=== PATIENT | female | born 1965 | race Caucasian/White ===

== ENCOUNTER 2019-07-04 16:55 | Observation (INO) ==
[2019-07-04] MEDS ORDERED: SODIUM CHLORIDE 0.9% 1000ML 1,000 ML IV SCH (17:30)
[2019-07-04 17:37] LABS: Appearance Urine Clear (Clear); Bilirubin Urine Negative (Negative); Blood Urine Negative (Negative); Color Urine Yellow; Glucose Urine UA Negative (Negative); Ketones Urine Negative (Negative); Leukocyte Esterase Urine Negative (Negative); Nitrite Urine Negative (Negative); Protein Urine Negative (Negative); Specific Gravity Urine 1.005 (1.000-1.030); Urobilinogen Urine Negative (Negative); pH Urine 6.5 (4.5-7.5)
--- NOTE | 2019-07-04 17:39 | Emergency Department Note ---
Impression & Plan Abdominal pain, RLQ (right lower quadrant) ED Provider Note Provider: Venkatesh Abdul MD DATE OF SERVICE: 07/04/2019 CHIEF COMPLAINT: Referred by , abdominal pain HISTORY OF PRESENT ILLNESS: Patient is a 54-year-old female with a history of breast cancer, hyperlipidemia, allergies presenting today with the referral for further evaluation of abdominal pain. Patient evidently was suffering for abdominal pain anomaly in the right lower quadrant and had an outpatient CT done 2 days ago. Noted a large appendix at that time but without inflammatory changes. Surgeon reviewed the images today and referred her here for further evaluation. Patient currently denies any pain or nausea. Afebrile upon arrival. Patient states her symptoms improved today and other than having some loose stools she has been eating okay. No significant right lower quadrant pain. Patient states she been going up and down ladders and painting at home. No sick contacts. Patient states that she is not taken any significant pain relievers. Patient denies fever. REVIEW OF SYSTEMS: A total of 10 review of systems was obtained and negative except as stated above in the HPI. PAST MEDICAL HISTORY: As noted above, and includes prior hysterectomy MEDICATIONS: Reviewed nursing notes and includes arimidex SOCIAL HISTORY: Patient is non-smoker and lives at home with son PHYSICAL EXAM: GENERAL: alert and oriented in no acute distress on stretcher Head: normocephalic and atraumatic EYES: No injection, discharge or icterus ENT: Mucous membranes pink and moist. LUNGS: Airway patent. No retractions. Breath sounds clear with good air entry bilaterally. HEART: Regular rate and rhythm. No chest wall tenderness ABDOMEN: Soft nondistended without peritoneal signs or rebound. On deep palpation may be slight right lower quadrant tenderness elicited. BACK:. No bilateral flank tenderness. SKIN: Acyanotic, warm, dry, without rashes EXTREMITIES: Without swelling, tenderness or deformity NEUROLOGICAL: No focal deficits. No aphasia. No facial droop or slurred speech. Ambulatory. Patient's hypertension was referred to her PCP HOSPITAL COURSE: 1702 Patient was first seen and H&P performed. 1824 Patient reassessed and updated. Discussed the patient with Dr. Salvador of general surgery who stated he would evaluate and recommended CT. At approximately 7 PM and then again at approximately 7:30 PM discussed with the patient and general surgeon plan of care. Patient's laboratory studies and imaging reviewed. Differential includes Appendicitis, ovarian cyst, ovarian torsion, ectopic , TOA, PID, infections, diverticulitis, UTI, obstruction, mesenteric ischemia, aortic pathology, inflammatory bowel disease, renal colic, PUD, pancreatitis, biliary pathology, hernia, volvulus, constipation, as well as other pathologies. IMPRESSION/MEDICAL DECISION MAKING: Patient presents for evaluation given an enlarged appendix found on outpatient scan from 2 days ago. Patient symptomatologies have significantly improved. Patient does not appear peritoneal. No fevers reported. Given her well appearance started with blood work to look for any secondary signs of appendicitis is a leukocytosis or other abnormality. CT scan report and imaging reviewed showed enlarged appendix but no surrounding inflammatory changes from 2 days ago. Would expect worsening rather than improvement at this point or other significant abdominal exam findings if truly appendicitis. Urinalysis is without evidence of blood or infection. Electrolytes without significant abnormality. Renal function stable. No evidence of hepatitis or pancreatitis. Given the white blood cell count of 4.7 and her lack of symptoms at this point have a lower suspicion for acute appendicitis. Given that she was referred to us by general surgery I did discuss the case with Dr. Salvador. He evaluated in the department. She had some concern given the enlarged size this could represent a precancerous tumor. He did recommended that the patient have the appendix removed tonight to evaluate for this. He discussed the options with the patient. She also requested that I discussed the options with her as well. I discussed with her at length the risks and benefits and the options of waiting for further outpatient evaluation of this may be delayed in the setting of the current pandemic. Dr. Caceres also discussed with her risks and benefits. Patient was agreeable for laparoscopic appendectomy at this time and will be taken the OR for further care. DIAGNOSIS: Enlarged appendix DISPOSITION: Taken to the OR Past Med/Surg History Medical History (Updated 07/04/19 @ 22:39 by Venkatesh Abdul M.D.) Breast cancer Surgical History (Updated 07/04/19 @ 20:46 by Venkatesh Gutierrez DO) S/P mastectomy Social History (System 04/06/18 @ 11:36 by Zena Matthews) Preferred Language: Telugu Feels Safe at Home: Yes Smoking Status: Never smoker Allergies Allergies Allergy/AdvReac Type Severity Reaction Status Date / Time Sulfa (Sulfonamide Allergy Intermediate DELIRIUM Verified 07/04/19 17:36 Antibiotics) vancomycin AdvReac Mild BI'S Verified 07/04/19 17:36 SYNDROME Home Meds Home Medications Medication Instructions Recorded Confirmed anastrozole 1 mg PO DAILY 07/04/19 07/04/19 atorvastatin 80 mg PO DAILY 07/04/19 07/04/19 cetirizine [Zyrtec] 10 mg PO DAILY 07/04/19 07/04/19 venlafaxine 75 mg PO DAILY 07/04/19 07/04/19 venlafaxine 150 mg PO DAILY 07/04/19 07/04/19 Results & Data (ED) Vital Signs Vital Signs - 24 hr 07/04/19 16:58 07/04/19 17:51 07/04/19 19:23 Temperature 36.8 C Temperature Source Oral Pulse Rate 86 Pulse Rate [Left] 83 88 Pulse Rhythm [Left] Regular Regular Respiratory Rate 18 22 20 Respiratory Effort / Characteristics Non-Labored Non-Labored Non-Labored Respiratory Depth Normal Normal Normal Respiratory Pattern Regular Regular Blood Pressure 132/83 Blood Pressure [Left Arm] 122/67 133/89 Blood Pressure Mean 99 Blood Pressure Mean [Left Arm] 85 103 Pulse Oximetry 96 94 100 Oxygen Delivery Method Room Air Room Air Room Air Sepsis Recent Fever Within 48 Hours No Sepsis Action Taken by Nursing No Action Required 07/04/19 20:07 07/04/19 20:53 Temperature 36.7 C Temperature Source Pulse Rate 84 Pulse Rate [Left] 85 Pulse Rhythm [Left] Respiratory Rate 20 18 Respiratory Effort / Characteristics Non-Labored Spontaneous Respiratory Depth Normal Respiratory Pattern Blood Pressure 115/74 Blood Pressure [Left Arm] 124/84 Blood Pressure Mean 87 Blood Pressure Mean [Left Arm] 97 Pulse Oximetry 98 98 Oxygen Delivery Method Room Air Room Air Sepsis Recent Fever Within 48 Hours Sepsis Action Taken by Nursing Laboratory Data Result diagrams: 07/04/19 17:40 07/04/19 17:40 Lab Results 07/04/19 07/04/19 07/04/19 Range/Units 17:27 17:27 17:40 WBC 4.70 L (4.8-10.8) K/uL RBC 4.49 (4.2-5.4) M/uL Hgb 13.5 (12.0-16.0) g/dL Hct 40.6 (37-47) % MCV 90.4 (80-100) fL MCH 30.1 (25-34) pg MCHC 33.3 (32-36) g/dL RDW Std Deviation 41.1 (36.4-46.3) fL RDW Coeff of Anisha 12.5 (11.5-14.5) % Plt Count 233 (130-400) K/uL MPV 9.4 (7.4-10.4) fL Immature Gran % (Auto) 0.0 % Neut % (Auto) 50.9 % Lymph % (Auto) 39.1 % [place] % (Auto) 8.3 % Eos % (Auto) 1.3 % Baso % (Auto) 0.4 % Immature Gran # (Auto) 0.00 (0.00-0.02) K/uL Neut # (Auto) 2.39 (1.4-6.5) K/uL Lymph # (Auto) 1.84 (1.2-3.4) K/uL [place] # (Auto) 0.39 (0.11-0.59) K/uL Eos # (Auto) 0.06 (0-0.5) K/uL Baso # (Auto) 0.02 (0-0.2) K/uL Sodium (136-145) mmol/L Potassium (3.5-5.1) mmol/L Chloride (98-107) mmol/L Carbon Dioxide (21-32) mmol/L Anion Gap (3-11) BUN (7-18) mg/dl Creatinine (0.6-1.2) mg/dl Est Cr Clr Drug Dosing ml/min Est GFR ( Amer) Est GFR (Non-Af Amer) BUN/Creatinine Ratio (10-20) Glucose (70-99) mg/dl Calcium (8.5-10.1) mg/dl Total Bilirubin (0.2-1) mg/dl AST (15-37) U/L ALT (12-78) U/L Alkaline Phosphatase (45-117) U/L Total Protein (6.4-8.2) gm/dl Albumin (3.4-5.0) gm/dl Globulin (2.5-4.0) gm/dl Albumin/Globulin Ratio (0.9-2) Lipase (73-393) U/L Urine Color Yellow Urine Appearance Clear (Clear) Urine pH 6.5 (4.5-7.5) Ur Specific [place] 1.005 (1.000-1.030) Urine Protein Negative (Negative) Urine Glucose (UA) Negative (Negative) Urine Ketones Negative (Negative) Urine Blood Negative (Negative) Urine Nitrite Negative (Negative) Urine Bilirubin Negative (Negative) Urine Urobilinogen Negative (Negative) Ur Leukocyte Esterase Negative (Negative) POC Ur Test NEG (NEG) 07/04/19 Range/Units 17:40 WBC (4.8-10.8) K/uL RBC (4.2-5.4) M/uL Hgb (12.0-16.0) g/dL Hct (37-47) % MCV (80-100) fL MCH (25-34) pg MCHC (32-36) g/dL RDW Std Deviation (36.4-46.3) fL RDW Coeff of Anisha (11.5-14.5) % Plt Count (130-400) K/uL MPV (7.4-10.4) fL Immature Gran % (Auto) % Neut % (Auto) % Lymph % (Auto) % [place] % (Auto) % Eos % (Auto) % Baso % (Auto) % Immature Gran # (Auto) (0.00-0.02) K/uL Neut # (Auto) (1.4-6.5) K/uL Lymph # (Auto) (1.2-3.4) K/uL [place] # (Auto) (0.11-0.59) K/uL Eos # (Auto) (0-0.5) K/uL Baso # (Auto) (0-0.2) K/uL Sodium 138 (136-145) mmol/L Potassium 3.4 L (3.5-5.1) mmol/L Chloride 107 (98-107) mmol/L Carbon Dioxide 30 (21-32) mmol/L Anion Gap 1.0 L (3-11) BUN 8 (7-18) mg/dl Creatinine 0.89 (0.6-1.2) mg/dl Est Cr Clr Drug Dosing 72.7 ml/min Est GFR ( Amer) 86.4 Est GFR (Non-Af Amer) 74.5 BUN/Creatinine Ratio 9.0 L (10-20) Glucose 110 H (70-99) mg/dl Calcium 9.2 (8.5-10.1) mg/dl Total Bilirubin 0.3 (0.2-1) mg/dl AST 25 (15-37) U/L ALT 39 (12-78) U/L Alkaline Phosphatase 122 H (45-117) U/L Total Protein 7.7 (6.4-8.2) gm/dl Albumin 3.8 (3.4-5.0) gm/dl Globulin 3.9 (2.5-4.0) gm/dl Albumin/Globulin Ratio 1.0 (0.9-2) Lipase 152 (73-393) U/L Urine Color Urine Appearance (Clear) Urine pH (4.5-7.5) Ur Specific [place] (1.000-1.030) Urine Protein (Negative) Urine Glucose (UA) (Negative) Urine Ketones (Negative) Urine Blood (Negative) Urine Nitrite (Negative) Urine Bilirubin (Negative) Urine Urobilinogen (Negative) Ur Leukocyte Esterase (Negative) POC Ur Test (NEG) Administered Medications Ioversol (Optiray 320 100ml) 94 ml IV ONCE PRN PRN Reason: Interaction Checking Stop: 07/08/19 18:40 Last Admin: 07/04/19 18:41 Dose: 94 ml Documented by: [id number] Discontinued Medications Bupivacaine HCl (Marcaine 0.5% Mpf) Confirm Administered Dose 30 ml .ROUTE .STK- MED ONE Stop: 07/04/19 19:47 Last Admin: 07/04/19 22:05 Dose: 12.5 ml Documented by: [id number] Sodium Chloride (Nss 1000ml) 1,000 mls @ 999 mls/hr IV .Q1H1M SHAN Stop: 07/04/19 18:30 Last Infusion: 07/04/19 18:47 Dose: 0 mls/hr Documented by: [id number] Admin: 07/04/19 17:50 Dose: 999 mls/hr Documented by: [id number] Cefoxitin Sodium 2,000 mg/ (Dextrose) 60 mls @ 100 mls/hr IV TODAY@2029 ONE Stop: 07/04/19 21:05 Last Admin: 07/04/19 21:27 Dose: 100 mls/hr Documented by: [id number] Lidocaine HCl (Xylocaine 1% (Local)) Confirm Administered Dose 20 ml .ROUTE .STK -MED ONE Stop: 07/04/19 19:47 Last Admin: 07/04/19 22:05 Dose: 12.5 ml Documented by: [id number] Discharge Plan Visit Data *Final* Discharge Date/Time: 07/04/19 20:15 Chief Complaint: Referred by Doctor Stated Complaint: DR REF - FURTHER TESTING FOR LWR ABD PAIN ED Provider: Venkatesh Abdul Discharge Problem: Abdominal pain, RLQ (right lower quadrant) Patient Disposition: Admitted As Inpatient Discharge Instructions Interventions: ED Discharge Assessment Last Done: 07/04/19 20:15 Prescriptions Prescriptions: No Action anastrozole 1 mg tablet 1 mg PO DAILY RF: 0 atorvastatin 80 mg tablet 80 mg PO DAILY RF: 0 venlafaxine 75 mg capsule,extended release 24hr 75 mg PO DAILY RF: 0 cetirizine [Zyrtec] 10 mg Tablet 10 mg PO DAILY RF: 0 venlafaxine 150 mg capsule,extended release 24hr 150 mg PO DAILY RF: 0
[2019-07-04 17:50] LABS: Basophils # (auto) 0.02 K/uL (0-0.2); Basophils % (auto) 0.4 %; Eosinophils # (auto) 0.06 K/uL (0-0.5); Eosinophils % (auto) 1.3 %; Hematocrit (blood only) 40.6 % (37-47); Hemoglobin 13.5 g/dL (12.0-16.0); Lymphocytes # (auto) 1.84 K/uL (1.2-3.4); Lymphocytes % (auto) 39.1 %; Mean Corpuscular Hemoglobin 30.1 pg (25-34); Mean Corpuscular Hgb Conc 33.3 g/dL (32-36); Mean Corpuscular Volume 90.4 fL (80-100); Mean Platelet Volume 9.4 fL (7.4-10.4); Monocytes # (auto) 0.39 K/uL (0.11-0.59); Monocytes % (auto) 8.3 %; Neutrophils # (auto) 2.39 K/uL (1.4-6.5); Neutrophils % (auto) 50.9 %; Platelet Count 233 K/uL (130-400); RDW Coefficient of Variation 12.5 % (11.5-14.5); RDW Standard Deviation 41.1 fL (36.4-46.3); Red Blood Count 4.49 M/uL (4.2-5.4)
[2019-07-04 18:06] LABS: Albumin Level 3.8 gm/dl (3.4-5.0); Calcium 9.2 mg/dl (8.5-10.1); Creatinine Clr Calc Pharmacy 72.7 ml/min; Est GFR (African American) 86.4; Est GFR (Non-African American) 74.5; Potassium 3.4 mmol/L (3.5-5.1)
[2019-07-04 18:09] LABS: Bilirubin,Total 0.3 mg/dl (0.2-1); Globulin 3.9 gm/dl (2.5-4.0); Total Protein 7.7 gm/dl (6.4-8.2)
[2019-07-04] MEDS ORDERED: IOVERSOL 100ml IV PRN (18:41)
--- NOTE | 2019-07-04 18:51 | CT Scan Report ---
CT abd pelvis IV con only CLINICAL HISTORY: Abnormal prior CT scan with enlarged appendix. Improving right lower quadrant abdom inal pain. COMPARISON STUDY: 07/02/2019 TECHNIQUE: The patient was scanned in a dynamic helical fashion during intravenous administration of 94 cc of Optiray 320. A dose lowering technique was utilized adhering to the principles of ALARA. CT DOSE: 529.05 mGy.cm FINDINGS: Lower chest: Postsurgical changes involve the left breast. There are no pleural effusions. There is n o basilar consolidation. Liver: The contrast-enhanced liver is normal in size, contour, and attenuation. There is no intrahepa tic biliary ductal dilatation. The hepatic veins and portal veins are patent. Gallbladder: Unremarkable. Spleen: Normal in size and attenuation. Pancreas: Unremarkable. Adrenal glands: Unremarkable. Kidneys: There is symmetric renal cortical enhancement. The kidneys are normal in size without hydron ephrosis. Bowel: There are no transition zones to indicate bowel obstruction. There is no evidence of acute div erticulitis. The appendix remains enlarged measuring 12 mm in diameter. Oral contrast the patient's p rior CT scan, now fills the appendix. There is no evidence of periappendiceal inflammatory change. Th e findings are therefore felt to represent a normal variation. Peritoneum: There is no intraperitoneal free air or abdominal ascites. Vasculature: The abdominal aorta is normal in course and caliber. Adenopathy: None. Pelvic viscera: The uterus is surgically absent Skeletal structures: No destructive osseous lesions are seen. IMPRESSION: 1. No acute intra-abdominal or pelvic findings 2. No evidence of bowel obstruction. No evidence of free air 3. The appendix remains enlarged, but now fills with oral contrast indicating a patent lumen. There a re no periappendiceal inflammatory changes. The findings are felt to represent a normal variant. ACT 112: Negative or not required by law. Electronically signed by: Jay Cramer M.D. 07/04/2019 6:49 PM
[2019-07-04] MEDS ORDERED: LIDOCAINE HCL 1% 20 ML VIAL ONE (19:46)
[2019-07-04] MEDS ORDERED: BUPIVACAINE 0.5 % 5 MG/1 ML MPF 30ML VIAL ONE (19:46)
[2019-07-04] MEDS ORDERED: fentaNYL citrate 100 MCG/2 ML VIAL ONE (20:12)
[2019-07-04] MEDS ORDERED: PROPOFOL IV EMULSION 10 MG/ML 20 ML VIAL IV ONE (20:12)
[2019-07-04] MEDS ORDERED: ONDANSETRON INJ 2 MG/ML 2 ML VIAL ONE (20:12)
[2019-07-04] MEDS ORDERED: LIDOCAINE HCL 2% 2 ML VIAL/AMP(20MG/ML) INFIL ONE (20:12)
[2019-07-04] MEDS ORDERED: cefOXitin 2,000 MG in DEXTROSE 5% 50 ML IV ONE (20:30)
[2019-07-04] MEDS ORDERED: SCOPOLAMINE 1.5 MG TDSY ONE (20:39)
[2019-07-04] MEDS ORDERED: ONDANSETRON INJ 2 MG/ML 2 ML VIAL IV PRN ×2 (20:47→22:18)
[2019-07-04] MEDS ORDERED: fentaNYL citrate 100 MCG/2 ML VIAL IV PRN (20:47)
[2019-07-04] MEDS ORDERED: ePHEDrine sulfate 50 MG/ML AMP IV PRN (20:47)
[2019-07-04] MEDS ORDERED: ATROPINE SULFATE 0.1 MG/ML 10ML SYR IV PRN (20:47)
--- NOTE | 2019-07-04 20:47 | Anesthesiology Consultation ---
Date of Service July 04, 2019 Assessment & Plan (1) Encounter for pre-operative examination: Chart Review Chart Review: Acceptable Risk for Surgery Consults Requested none ASA [id number] Proposed Anesthesia Anesthesia Type: General Risk / Benefits Reviewed With: PT / POA / Parent / Guardian, Accepts Plan and Informed Consent Obtained History Surgery Operation Date: 07/04/19 19:35 Proposed Procedures p Laparoscopic Appendectomy - Estrella Salvador MD Height/Weight Height: 5 ft 2 in Weight: 80.5 kg Allergies Allergy/AdvReac Type Severity Reaction Status Date / Time Sulfa (Sulfonamide Allergy Intermediate DELIRIUM Verified 07/04/19 17:36 Antibiotics) vancomycin AdvReac Mild BI'S Verified 07/04/19 17:36 SYNDROME Medications Home Medications Medication Instructions Recorded Confirmed Last Taken anastrozole 1 mg PO DAILY 07/04/19 07/04/19 Unknown atorvastatin 80 mg PO DAILY 07/04/19 07/04/19 Unknown cetirizine [Zyrtec] 10 mg PO DAILY 07/04/19 07/04/19 Unknown venlafaxine 75 mg PO DAILY 07/04/19 07/04/19 Unknown venlafaxine 150 mg PO DAILY 07/04/19 07/04/19 Unknown Active Medications Generic Name Dose Route Start Last Admin Trade Name Freq PRN Reason Stop Dose Admin Ioversol 94 ml 07/04/19 18:41 07/04/19 18:41 Optiray 320 100ml IV 07/08/19 18:40 94 ml ONCE PRN Administration Interaction Checking NPO Date Last Intake of Fluids: 07/04/19 Time Last Intake of Fluids: 16:30 Date Last Intake of Solids: 07/04/19 Time Last Intake of Solids: 12:00 Last Intake of Solids Comment: handful of cashews Past Medical History Medical History (Updated 07/04/19 @ 20:46 by Venkatesh Gutierrez DO) Breast cancer Exercise / Class Metabolic Activity II 4-5 Yardwork/Stairs/Walk up hill Past Surgical History Surgical History (Updated 07/04/19 @ 20:46 by Venkatesh Gutierrez DO) S/P mastectomy Past Anesthesia History No Hx of Anesthesia Complications and No Family Hx of Anesthesia Complications History of PONV No Hx of PONV and No Hx of Motion Sickness Social History Smoking Status: Never smoker Physical Exam Vital Signs Last Vital Signs Temp 98.2 F 07/04/19 16:58 Pulse 85 07/04/19 20:07 Resp 20 07/04/19 20:07 BP 124/84 07/04/19 20:07 Pulse Ox 98 07/04/19 20:07 ENMT Mouth: no dentition abnormality Thyromental Distance: > or= 3.5 Finger Breadths Mallampati Class: II Neck normal visual inspection Respiratory normal respiratory effort Auscultation: lungs clear to auscultation bilaterally Cardiovascular Rate/Rhythm: regular rate and regular rhythm Testing Laboratory Results 07/04/19 17:40 07/04/19 17:40 Urine Color Yellow 07/04/19 17:27 Urine Appearance Clear (Clear) 07/04/19 17:27 Urine pH 6.5 (4.5-7.5) 07/04/19 17:27 Ur Specific [place] 1.005 (1.000-1.030) 07/04/19 17:27 Urine Protein Negative (Negative) 07/04/19 17:27 Urine Glucose (UA) Negative (Negative) 07/04/19 17:27 Urine Ketones Negative (Negative) 07/04/19 17:27 Urine Nitrite Negative (Negative) 07/04/19 17:27 Ur Leukocyte Esterase Negative (Negative) 07/04/19 17:27 07/04/19 17:27 POC Ur Test NEG
[2019-07-04] MEDS ORDERED: ROCURONIUM BROMIDE 10 MG/ML 5 ML VIAL ONE (21:57)
[2019-07-04] MEDS ORDERED: SUCCINYLCHOLINE 100MG/5ML SYR ONE (21:57)
[2019-07-04] MEDS ORDERED: NEOSTIGMINE METHYLSULFATE 5 MG/5 ML SYR ONE (21:57)
[2019-07-04] MEDS ORDERED: GLYCOPYRROLATE 0.2 MG/ML VIAL ONE (21:57)
--- NOTE | 2019-07-04 22:09 | Post Operative Brief Note ---
Immediate Post Op Note v1 Date of Surgery July 04, 2019 Pre & Post Diagnosis Operation Date: 07/04/19 19:35 Pre-Op Diagnosis: Acute Appendicitis post-op diagnosis: acute appendicitis I identified the patient and participated in the time-out.: Yes Procedure Operation Date: 07/04/19 19:35 Actual Procedures p Laparoscopic Appendectomy(Not Applicable) - Estrella Salvador MD Surgeon Estrella Salvador MD Cigarette Examiner surgical services manager Estimated Blood Loss 10 Findings Consistent with Post-Op Diagnosis enlarge appendix, diameter 1.2cm Fluids 900ml Specimens appendix Anesthesia Type General Complications none Disposition Accompanied Patient To Recovery: Yes Disposition: Recovery Room Overlapping Procedure I was immediately available: during the entire case.
--- NOTE | 2019-07-04 22:40 | Anesthesiology Progress Note ---
Date of Service July 04, 2019 Anesthesia Post Procedure Vital Signs Vital Signs: Temp Pulse Pulse Resp BP BP Pulse Ox 07/04/19 20:53 98.1 F 84 18 115/74 98 07/04/19 20:07 85 20 124/84 98 07/04/19 19:23 88 20 133/89 100 07/04/19 17:51 83 22 122/67 94 07/04/19 16:58 98.2 F 86 18 132/83 96 Transfer of Care Handoff Completed per policy Notes Mental Status: alert / awake / arousable and participated in evaluation Patient Amnestic to Procedure: Yes Nausea / Vomiting: adequately controlled Pain: adequately controlled Airway Patency, RR, SpO2: stable & adequate BP & HR: stable & adequate Hydration State: stable & adequate Anesthetic Complications: no major complications apparent and Pt Satisfied with anesthetic care
[2019-07-04] MEDS ORDERED: OXYCODONE/ACETAMINOPHEN 5mg/325mg TAB PO PRN (23:46)
[2019-07-04] MEDS ORDERED: HYDROmorphone INJ 0.5 MG/0.5 ML SYR IV PRN (23:46)
[2019-07-04] MEDS ORDERED: LACTATED RINGER'S 1,000 ML IV SCH (23:46)
--- NOTE | 2019-07-05 00:48 | Operative Report (OR) ---
DATE OF OPERATION: 07/04/2019 PREOPERATIVE DIAGNOSIS: Acute appendicitis. POSTOPERATIVE DIAGNOSIS: Acute appendicitis. PROCEDURE: Laparoscopic appendectomy. SURGEON: Estrella Salvador MD. ANESTHESIA: General. ESTIMATED BLOOD LOSS: About 10 mL. FINDINGS: Acute appendicitis with the enlarged appendix. COMPLICATIONS: None. INDICATIONS FOR THE PROCEDURE: This is a 54-year-old female who presented to ED with enlarged appendix with right lower quadrant pain and I recommended to do laparoscopic appendectomy, possible open. I did talk to the patient about the benefit and risk, alternate procedure. I indicated the risks may include but not limited such as bleeding, infection, injury to the bowel, abscess. The patient understands. She signed informed consent and I answered all questions. DETAILS OF PROCEDURE: We brought the patient to the OR, put the patient in the supine position. The patient received SCD on bilateral legs to prevent DVT. Also, patient received 2 g cefoxitin IV for prophylactic antibiotic. The patient received general anesthesia without difficulty. Abdomen was appropriately draped in routine sterile fashion. After timeout, I injected the local anesthesia by using 1% lidocaine mixed with 0.5% Marcaine injection just above umbilicus, then I made a small incision just above umbilicus, opened fascia and opened peritoneum under direct vision, put a Zuleika trocar in, connected to CO2 to create pneumoperitoneum, flow rate at 6 liter per minute. Pressure not more than 14 mmHg. Once we got a nice pneumoperitoneum, we put the camera in, looked around the abdomen, shows normal finding on the small bowel, large bowel; however, the appendix shows enlarged about the diameter 1.2 cm and diagnosis confirmed acute appendicitis. Then, I used the harmonic to take down the appendiceal, rechecked, no active bleeding. Then I used 45 mm Endo-RIKKI staple for transection on the base of the appendix, rechecked the staple line intact. No active bleeding. Then we removed the appendix through the catch bag then we reinserted Zuleika trocar in, connected to CO2 to create pneumoperitoneum, again looked around the abdomen, no active bleeding, no leak from staple line. Then we removed all trocar under direct vision. No active bleeding from the trocar sites. Pneumoperitoneum was released. I closed the umbilical incision, fascial layer by using #1 Vicryl [id number] x2, closed subcutaneous layer by using 2-0 Vicryl interrupted, closed skin by using 4-0 Vicryl continuous running, closed another two 5 mm trocar site skin only by using 4-0 Vicryl ,after we put a Zuleika trocar in once we put a camera in, we put another two 5 mm trocar on the left lower quadrant area. Otherwise, the patient tolerated the procedure well. All instrument, needle and sponge count were correct x2 at the end the case. The patient transferred to recovery room in stable condition. Specimen sent to pathology. I attest to the content of the Intraoperative Record and any orders documented therein. Any exception s are noted below.
[2019-07-05 05:13] LABS: Basophils # (auto) 0.01 K/uL (0-0.2); Basophils % (auto) 0.2 %; Eosinophils # (auto) 0.01 K/uL (0-0.5); Eosinophils % (auto) 0.2 %; Hematocrit (blood only) 35.4 % (37-47); Hemoglobin 11.7 g/dL (12.0-16.0); Immature Granulocytes # (auto) 0.01 K/uL (0.00-0.02); Immature Granulocytes % (auto) 0.2 %; Lymphocytes # (auto) 1.32 K/uL (1.2-3.4); Lymphocytes % (auto) 22.8 %; Mean Corpuscular Hemoglobin 30.1 pg (25-34); Mean Corpuscular Hgb Conc 33.1 g/dL (32-36); Mean Platelet Volume 9.4 fL (7.4-10.4); Monocytes % (auto) 5.2 %; Neutrophils # (auto) 4.15 K/uL (1.4-6.5); Neutrophils % (auto) 71.4 %; Platelet Count 210 K/uL (130-400); RDW Coefficient of Variation 12.8 % (11.5-14.5); RDW Standard Deviation 42.5 fL (36.4-46.3); Red Blood Count 3.89 M/uL (4.2-5.4)
[2019-07-05] MEDS ORDERED: CETIRIZINE HCL 10 MG TABLET PO SCH (09:00)
[2019-07-05] MEDS ORDERED: VENLAFAXINE HCL XR 75 MG CAPXR PO SCH (09:00)
[2019-07-05] MEDS ORDERED: ANASTROZOLE 1 MG TAB PO SCH (09:00)
[2019-07-05] MEDS ORDERED: ATORVASTATIN 40 MG TAB PO SCH (09:00)
[2019-07-05] MEDS ORDERED: VENLAFAXINE HCL XR 150 MG CAPXR PO SCH (09:00)
--- NOTE | 2019-07-05 11:10 | Discharge Summary ---
Date of Service July 05, 2019 Admission HPI Per Admitting Provider Patient is a 54-year-old female with a history of breast cancer, hyperlipidemia, allergies presenting today with the referral for further evaluation of abdominal pain. Patient evidently was suffering for abdominal pain anomaly in the right lower quadrant and had an outpatient CT done 2 days ago. Noted a large appendix at that time but without inflammatory changes. Surgeon reviewed the images today and referred her here for further evaluation. Patient currently denies any pain or nausea. Afebrile upon arrival. Patient states her symptoms improved today and other than having some loose stools she has been eating okay. No significant right lower quadrant pain. Patient states she been going up and down ladders and painting at home. No sick contacts. Patient states that she is not taken any significant pain relievers. Patient denies fever. I ( Estrella Salvador MD )reviewed pt's H/P, labs, CT scan ( 01/07, 03/07) with pt, Principal Diagnosis Enlarged appendix, possbile acute appendicitis Discharge Exam Constitutional well developed and well nourished; no acute distress Respiratory normal respiratory effort; no respiratory distress Skin no rashes, warm and dry Psychiatric A+Ox3, euthymic affect Discharge Data Allergies Allergy/AdvReac Type Severity Reaction Status Date / Time Sulfa (Sulfonamide Allergy Intermediate DELIRIUM Verified 07/04/19 17:36 Antibiotics) vancomycin AdvReac Mild BI'S Verified 07/04/19 17:36 SYNDROME Consultations 07/04/19 20:10 ED Decision to Admit Stat Procedures Performed Operation Date: 07/04/19 19:35 Actual Procedures p Laparoscopic Appendectomy(Not Applicable) - Estrella Salvador MD Ordered Studies 07/04/19 18:22 CT abd pelvis IV con only Stat Hospital Course (1) Abdominal pain, RLQ (right lower quadrant): Patient had outpatient CT scan 2 days prior which showed enlarged appendix without inflammatory findings. She presented to ED with improving symptoms and repeat CT scan showed persistent dilated appendix at 12 mm but again no inflammatory findings. No leukocytosis. Dr. Salvador discussed possibility of tumor or abnormal appendix with patient and option of outpatient follow-up vs appendectomy. Patient agreed to proceed with appendectomy. Patient taken to o perating room for laparoscopic appendectomy. Patient found to have enlarged appendix. Tolerated procedure well. Transferred to recovery to room then to medical/surgical floor for postoperative care. Diet advanced to clear liquids, PO Percocet and IV Dilaudid as needed for pain. POD # 1 , avss, tolerated clear liquids, pain controlled without narcotics, ambulated hallway, no n/v. Patient was discharged home on POD # 1 in stable condition. Will have 1-2 week follow- up surgical office for pathology review. Total Time Total Time Spent Total Time Spent (In Minutes): 20 Total Time Includes: Examination of the Patient, Discharge Planning and Medication Reconciliation Discharge Plan Discharge Items Patient Disposition: Home - Self-Care Reason For Visit: ACUTE APPENDICITIS Discharge Diagnosis: Enlarged appendix acute appendicitis Condition on Discharge: Good Activity: Per Instructions section Non-emergency contact: Surgeon Call non-emergency contact if: your pain is not controlled, your pain is worsening, your pain is concerning for you, you have a fever, your temperature is above 101, your wound has increased redness, your wound has increased drainage and your wound pain has increased Follow-up/Referrals: Portillo Conde MD [Primary Care Provider] - Diet: Regular Addtl Attending Provider Instructions: Post-Surgical ~Discharge Instructions Activity Recommendations: - lifting limitation: (20 pounds for 3-4 weeks), - exercise/sex/sports limit: (nonstrenuous for 2 weeks), - driving or machine use limit: (none for 1 week or until pain free), - Shower/bathe limit: (no submerging incisions underwater for 2 weeks: bathing,swimming, hot tubs) Diet: - Resume previous diet SPECIAL CARE INSTRUCTIONS: - May shower in 2 days. Sponge bath and wash hair in meantime. After 2 days, remove outer dressings and shower. Let water run over area and pat dry. - Leave steri strips on for one week and then remove. - Call the surgeon's office with any questions or concerns - - (ex. temperature higher than 101 degrees F, excessive bleeding or pain). MEDICATIONS: - Resume previous medications unless instructed otherwise by your surgeon. - Ibuprofen 600 mg every 6 hours as needed (take with food) - Tylenol 650 mg every 6 hours as needed FOLLOW UP VISIT: - Surgical office will contact you to schedule a postoperative phone call visit. We are currently limiting in person office visits due to Coronavirus. Please call office at [phone] if you have any questions, concerns, or do not get a follow-up appointment scheduled. Pending Studies at Discharge: Yes (appendix pathology, will be reviewed during postoperative phone call ) Stand-Alone Forms: My [facility] [address], Smoking Cessation Medications and DC Order Prescriptions: Continued anastrozole 1 mg tablet 1 mg PO DAILY RF: 0 atorvastatin 80 mg tablet 80 mg PO DAILY RF: 0 venlafaxine 75 mg capsule,extended release 24hr 75 mg PO DAILY RF: 0 cetirizine [Zyrtec] 10 mg Tablet 10 mg PO DAILY RF: 0 venlafaxine 150 mg capsule,extended release 24hr 150 mg PO DAILY RF: 0 Discharge Orders: Discharge Order (Routine); Ordered 07/05/19 Ordered By: Kenzie Maynard Admission Data Admit Date/Time: 07/04/19 22:18 Attending Provider: Estrella Salvador Admit Provider: Estrella Salvador Primary Care Provider: Portillo Conde Other Providers: Estrella Salvador
== END 2019-07-05 11:55 | disposition home or self-care (01) ==
LOC: ED 16:55 → OR 20:15 → 3E 20:15